=== PATIENT | male | born 1990 | race Caucasian/White ===

== ENCOUNTER → 2019-03-19 | Outpatient (CLI) | payer BC ==
--- NOTE | 2019-03-19 15:41 | CT ---
EXAMINATION TYPE: CT abdomen pelvis w con DATE OF EXAM: 03/19/2019 COMPARISON: 03/03/2015 HISTORY: LRQ pain since Saturday. R/o acute appendicits CT DLP: 1315.10 mGycm CONTRAST: CT scan of the abdomen and pelvis is performed with Oral Contrast and with IV Contrast, patient injec iker with 100 mL of Isovue 300. FINDINGS: LUNG BASES-: No visible nodule. No infiltrate. LIVER/GB: No calcified gallstones. No space occupying hepatic lesion. Biliary tree is of normal ca liber. PANCREAS: No inflammation. No distinct mass. SPLEEN: No splenic enlargement. No lesion seen. ADRENALS: No nodule. No thickening. KIDNEYS/BLADDER: No hydronephrosis. No nephrolithiasis. No distinct renal mass. Urinary bladder g rossly unremarkable. BOWEL: Normal appendix. Normal bowel caliber. No inflammation. GENITAL ORGANS: No gross abnormality. LYMPH NODES: No greater than 1cm abdominal or pelvic lymph nodes are appreciated. AORTA: No significant abnormality. OSSEOUS STRUCTURES: No significant abnormality is seen. OTHER: No significant additional abnormality is seen. IMPRESSION: 1. No acute process seen to account for the patient's symptoms.
== END | disposition home or self-care (01) ==
LOC: RADCTMAIN 12:56
PROVIDERS: ATTEND Family Medicine
DX: K35.80 Unspecified acute appendicitis (principal)
CPT/HCPCS: 74177; Q9967

== ENCOUNTER 2022-03-02 04:31 | Emergency (ER) | payer BC ==
[2022-03-02 04:37] VITALS: TEMP 98
[2022-03-02] MEDS ORDERED: FAMOTIDINE 20 MG TAB PO STA (04:59)
[2022-03-02] MEDS ORDERED: predniSONE 20 MG TAB PO STA (04:59)
[2022-03-02] MEDS ORDERED: hydrOXYzine HCL 25 MG TAB PO STA (04:59)
--- NOTE | 2022-03-02 04:59 | ED ---
Allergic Reaction HPI - General Chief complaint: Allergic Reaction Stated complaint: Facial swelling Time Seen by Provider: 03/02/22 04:46 Source: patient, RN notes reviewed, old records reviewed Mode of arrival: ambulatory Limitations: no limitations - History of Present Illness Initial Comments: This is a 31-year-old male who presents with facial swelling no shortness of breath no throat swelling also has hives on his back and flank bilaterally worse on the left. Patient is no other complaints unsure of exposure has not changed anything in his life including medications. No shortness of breath. no History of ALLERGIC reaction MD Complaint: allergic reaction, hives, facial swelling Exposure: unknown Symptoms: itching, facial swelling Severity: moderate Treatment Prior to Arrival: none Previous Allergy History: none - Related Data Home Medications Medication Instructions Recorded Confirmed Levomilnacipran HCl [Fetzima] 40 mg PO DAILY 03/03/15 03/03/15 clonazePAM [KlonoPIN] 1 mg PO BID 03/03/15 03/03/15 Previous Rx's Medication Instructions Recorded Hydrocodone/Acetaminophen [Douglas 1 each PO Q6HR PRN #20 tab 03/03/15 5-325] Ondansetron Odt [Zofran ODT] 4 mg PO Q8HR PRN #10 tab 03/03/15 Tamsulosin [Flomax] 0.4 mg PO DAILY #14 cap 03/03/15 Famotidine [Pepcid] 40 mg PO BID #28 tablet 03/02/22 hydrOXYzine HCL [Atarax] 25 mg PO TID PRN #15 tab 03/02/22 predniSONE 50 mg PO DAILY #5 tab 03/02/22 Allergies Allergy/AdvReac Type Severity Reaction Status Date / Time No Known Allergies Allergy Verified 03/02/22 04:37 Review of Systems ROS Statement: Those systems with pertinent positive or pertinent negative responses have been documented in the HPI. ROS Other: All systems not noted in ROS Statement are negative. Past Medical History Additional Past Medical History / Comment(s): anxiety History of Any Multi-Drug Resistant Organisms: None Reported Past Surgical History: No Surgical Hx Reported Past Psychological History: Anxiety Smoking Status: Never smoker Past Alcohol Use History: Rare Past Drug Use History: None Reported General Exam Limitations: no limitations General appearance: alert, in no apparent distress Head exam: Present: atraumatic, normocephalic, normal inspection Eye exam: Present: normal appearance, PERRL, EOMI. Absent: scleral icterus, conjunctival injection, periorbital swelling ENT exam: Present: normal exam, mucous membranes moist Neck exam: Present: normal inspection. Absent: tenderness, meningismus, l ymphadenopathy Respiratory exam: Present: normal lung sounds bilaterally. Absent: respiratory distress, wheezes, rales, rhonchi, stridor Cardiovascular Exam: Present: regular rate, normal rhythm, normal heart sounds. Absent: systolic murmur, diastolic murmur, rubs, gallop, clicks GI/Abdominal exam: Present: soft, normal bowel sounds. Absent: distended, tenderness, guarding, rebound, rigid Extremities exam: Present: normal inspection, full ROM, normal capillary refill. Absent: tenderness, pedal edema, joint swelling, calf tenderness Back exam: Present: normal inspection Neurological exam: Present: alert, oriented X3, CN II-XII intact Psychiatric exam: Present: normal affect, normal mood Skin exam: Present: warm, dry, intact, normal color. Absent: rash Course Vital Signs 03/02/22 03/02/22 03/02/22 04:35 04:39 04:51 Temperature 98 F Pulse Rate 87 79 Respiratory 18 17 17 Rate Blood Pressure 154/106 142/102 O2 Sat by Pulse 97 96 Oximetry 03/02/22 05:05 Temperature Pulse Rate 84 Respiratory 16 Rate Blood Pressure 146/81 O2 Sat by Pulse 96 Oximetry - Reevaluation(s) Reevaluation #1: 03/02/22 medical record is reviewed patients symptoms improved in the ED patient informed of results here in the ED and questions answered Medical Decision Making - Medical Decision Making 31 male to the emergency department for evaluation of ALLERGIC reaction. Facial swelling and hives. Symptoms resolved here in the ER patient feels improved and can be discharged home Disposition Clinical Impression: Allergic reaction, Urticaria Disposition: HOME SELF-CARE Condition: Good Instructions (If sedation given, give patient instructions): Anaphylaxis (ED) Prescriptions: hydrOXYzine HCL [Atarax] 25 mg PO TID PRN #15 tab PRN Reason: Itching Famotidine [Pepcid] 40 mg PO BID #28 tablet predniSONE 50 mg PO DAILY #5 tab Is patient prescribed a controlled substance at d/c from ED?: No Referrals: Bob Borjas MD [Primary Care Provider] - 1-2 days Time of Disposition: 05:10
[2022-03-02 05:06] VITALS: BP 146/81; PULSE 84; RESP 16
== END 2022-03-02 05:13 | disposition home or self-care (01) ==
LOC: EC 04:31
DX: L50.0 Allergic urticaria (principal); F41.9 Anxiety disorder, unspecified
CPT/HCPCS: 99283; J7512